=== PATIENT | male | born 1950 | race Caucasian/White ===

== ENCOUNTER 2016-10-27 16:33 | Emergency (ER) | payer OTHER ==
[~2016-10-27 16:33] MED LIST: INDOMETHACIN50 M1 PO; MOTRIN 600 MG600 MG PO; PERCOCET 5-3251 EACH PO; PREDNISONE50 M1 PO
--- NOTE | 2016-10-27 16:57 | ED UPPER/LOWER EXTREMITY COMPL ---
History of Present Illness General Chief Complaint: Lower Extremity Problems Stated Complaint: RIGHT KNEE PAIN Source: patient Exam Limitations: no limitations Vital Signs & Intake/Output Vital Signs & Intake/Output Vital Signs Date Time Temp Pulse Resp B/P B/P Pulse O2 O2 Flow FiO2 Mean Ox Delivery Rate 10/27 1845 98.6 114 16 156/91 10/27 1750 Room Air 10/27 1649 98.9 114 15 145/89 94 Room Air Room Air ED Intake and Output 10/28 0000 10/27 1200 Intake Total Output Total 75 Balance -75 Output, Other 75 Allergies Coded Allergies: No Known Allergies (10/27/16) Reconcile Medications Allopurinol 100 MG TABLET 1 TAB PO BID GOUT (Reported) Atenolol 50 MG TABLET 1 TAB PO DAILY BP (Reported) Benazepril HCl 40 MG TABLET 1 TAB PO DAILY BP (Reported) Simvastatin (Simvastatin*) 10 MG TABLET 1 TAB PO QPM CHOLESTEROL (Reported) Triage Note: PT TO ED FOR C/C OF RIGHT KNEE PAIN S/P MOVING HEAVY EQUIPMENT ON SATURDAY. PAIN GETTING WORSE ESPECIALLY WITH MOVEMENT/AMBULATION. WAS TAKING ALEVE WITH MINIMAL RELIEF. +RLE PULSES. NO SWELLING NOTED. Triage Nurses Notes Reviewed? yes Onset: Gradual Duration: constant Timing: recent history Severity: severe Severity Numbers: 7 HPI: Patient is a 65-year-old male who presents emergency neck 3 days ago he was performing heavy lifting where he was moving a trailer onto his pickup truck where he was twisting his right knee however she denies any acute onset of pain however he does state that the following day he noted a gradual onset of right knee swelling and pain Patient is taken ibuprofen with minimal relief of symptoms. At rest he has no pain however with weightbearing activities and knee bending makes worse. Patient does state that he is unable to bend his knee normally. Denies any fever chills redness to the region or extremity swelling shortness of breath cough (DORENE CARLISLE) Past History Travel History Traveled to [place] past 21 day No Medical History Any Pertinent Medical History? 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 No (DORENE CARLISLE) Review of Systems Review of Systems Constitutional: Reports: no symptoms. EENTM: Reports: no symptoms. Respiratory: Reports: no symptoms. Cardiovascular: Reports: no symptoms. Gastrointestinal/Abdominal: Reports: no symptoms. Genitourinary: Reports: no symptoms. Musculoskeletal: Reports: see HPI, joint pain, joint swelling. Skin: Reports: no symptoms. Neurological/Psychological: Reports: no symptoms. Hematologic/Endocrine: Reports: no symptoms. Immunological: Reports: no symptoms. All Other Systems: Reviewed and Negative (DORENE CARLISLE) Physical Exam Physical Exam General Appearance: no apparent distress, obese Head: atraumatic Neurologic/Tendon: normal sensation, normal motor functions, normal tendon functions, responds to pain, no evidence tendon injury, no pulse deficit Skin: intact, normal color, warm/dry Comments: Well-developed well-nourished no apparent distress. HEENT: Atraumatic, extraocular motion intact Neck: Supple, no lymphadenopathy Back: Nontender Respiratory: No respiratory distress Extremities: Right knee noted suprapatellar swelling and effusion Generalized point tenderness noted Decreased active range of motion noted with 45 of flexion and full extension noted Negative valgus stress test negative varus stress test negative anterior drawer test negative posterior drawer test No surrounding erythema warmth Neuro: Alert and oriented x3 Psych: Mood affect normal, normal memory normal judgment. (DORENE CARLISLE) Progress Differential Diagnosis: arterial insufficiency, compartment syndrome, contusion, dislocation, DVT, fracture, gout, septic arthritis, sprain, tendon injury Plan of Care: Orders Procedure Date/time Status XRY-KNEE COMPLETE RIGHT 10/27 3032 Active Patient declined pain medications when offered Patient on initial examination has no concerns of septic arthritis or cellulitis or infectious process. Patient has more likely inflammatory etiology of symptoms. I discussed with patient risks and benefits of an therapeutic arthrocentesis which he understood and which she agreed to have procedure performed in the emergency room. Using sterile technique of chlorhexidine and ultrasound guidance I observed the suprapatellar recess on the monitor I then used 1% lidocaine 10 mL for interdermal localized anesthesia around the lateral approach to the suprapatellar region of patient's right knee Again using ultrasound guidance I used a 16-gauge needle and was able to aspirate approximately 75 mL of straw-colored fluid Then using the same needle location I then injected 6 mL of 1% lidocaine mixture combined with Kenalog and injected needle was removed bandage was applied patient did feel lightheaded and diaphoretic after the procedure where he was administered water and special population paraprofessional was placed. After this was performed again the observation of the fluid shows no concerns of infection Casa wrap was placed to right knee pre-and post-neurovascular was intact. Crutches was advised for weightbearing as tolerated status patient requested Dr. MESA for follow-up orthopedic Upon discharge patient looks well no apparent distress and will comply with discharge instructions and had no questions (DORENE CARLISLE) Diagnostic Imaging: Viewed by Me: Radiology Read. Radiology Impression: no fracture Comments: PATIENT: DELMER VIEIRA PRESENT AGE: 65 PATIENT ACCOUNT NO: [id number] : 52 LOCATION: [facility] ORDERING PHYSICIAN: DORENE LY SERVICE DATE: 10/27/16 EXAM TYPE: RAD - XRY-KNEE COMPLETE RIGHT EXAMINATION: XR KNEE, RIGHT CLINICAL INFORMATION: Right knee pain and swelling. COMPARISON: No relevant prior studies are available for comparison. TECHNIQUE: AP, lateral, and both oblique views of the right knee. FINDINGS: Moderate medial compartment joint space narrowing. Tricompartmental marginal osteophytes. No osseous erosion. No fracture. Small joint effusion. IMPRESSION: Tricompartment osteoarthritis, most prominent within the medial compartment. Small joint effusion. DICTATED BY: ELI BAE MD DATE/TIME DICTATED:10/27/161751 BUSINESS CONTINUITY MANAGER:KAREN DATE/TIME TRANSCRIBED:10/27/161751 (DORENE CARLISLE) Departure Departure Disposition: HOME OR SELF CARE Condition: Stable Clinical Impression Primary Impression: Right knee pain Secondary Impressions: Knee effusion, right Referrals: PA SCHAFER,CHELA Cotto (PCP/Family) MOSHE SCHAFER,NEGRO Jimenez Additional Instructions: As discussed in approximate 5 days if symptoms still persist follow-up with orthopedic doctor for further evaluation treatment. Begin icing the area directly 20 minutes every 2 hours. Begin [id number] ibuprofen for pain and inflammation. Begin using the Casa wrap for swelling. Begin using the crutches UNTIL YOU CAN walk without pain. If you note worsening symptoms return to emergency room. Departure Forms: Customer Survey General Discharge Information (SONIA LYDORENE) PA/ELECTRO WINNING OPERATOR Co-Sign Statement Statement: ED Attending supervision documentation- [] I saw and evaluated the patient. I have also reviewed all the pertinent lab results and diagnostic results. I agree with the findings and the plan of care as documented in the PA's/ELECTRO WINNING OPERATOR's documentation. [X] I have reviewed the ED Record and agree with the PA's/ELECTRO WINNING OPERATOR's documentation. [] Additions or exceptions (if any) to the PAs/ELECTRO WINNING OPERATOR's note and plan are summarized below: [] (DAREK SCHAFER,EMMANUEL Rodriguez)
[2016-10-27] MEDS ORDERED: ATENOLOL50 M1 PO (17:53)
[2016-10-27] MEDS ORDERED: ALLOPURINOL100 M1 PO (17:53)
[2016-10-27] MEDS ORDERED: SIMVASTATIN10 M1 PO (17:53)
[2016-10-27] MEDS ORDERED: BENAZEPRIL HCL40 MG PO (17:53)
--- NOTE | 2016-10-27 18:11 | RADIOLOGY REPORT ---
EXAMINATION: XR KNEE, RIGHT CLINICAL INFORMATION: Right knee pain and swelling. COMPARISON: No relevant prior studies are available for comparison. TECHNIQUE: AP, lateral, and both oblique views of the right knee. FINDINGS: Moderate medial compartment joint space narrowing. Tricompartmental marginal osteophytes. No osseous erosion. No fracture. Small joint effusion. IMPRESSION: Tricompartment osteoarthritis, most prominent within the medial compartment. Small joint effusion.
[2016-10-27 18:45] VITALS: BP 156/91
== END 2016-10-27 18:43 ==
LOC: ERH 16:33
DX: M25.561 Pain in right knee (principal); M25.461 Effusion, right knee
CPT/HCPCS: 73562-RT